=== PATIENT | female | born 1960 | race African-American/Black ===

== ENCOUNTER 2018-06-29 08:26 | Outpatient (CLI) | payer OTHER ==
[~2018-06-29 08:26] MED LIST: ACTOS30 MG; METFORMIN HCL500 MG; METOPROLOL SUCC25 MG; MICARDIS HCT1 UDTA2
== END 2018-06-29 08:35 | disposition home or self-care (01) ==
LOC: TOM 08:26
DX: R91.8 Other nonspecific abnormal finding of lung field (principal)